=== PATIENT | male | born 1970 | race Caucasian/White ===

== ENCOUNTER → 2018-02-04 | Day surgery (SDC) | payer OTHER ==
[~2018-02-04] MED LIST: BACITRACIN 50,000 UNIT VIAL ONE; BUPIVACAINE HCL 0.5% INJ 30 ML VIAL INJ ONE; CEFAZOLIN SOD 1 GM VIAL ONE; DEXAMETHASONE SOD PHOS INJ 4 MG/ML VIAL ONE; FENTANYL CITRATE/PF 100MCG/2 ML INJ ONE; LIDOCAINE HCL 1% 30ML-PF VIAL ONE; LIDOCAINE HCL 2% LOCAL INJ 5 ML SDV VIAL INJ ONE; MIDAZOLAM HCL 2 MG/2 ML VIAL ONE; ONDANSETRON HCL INJ 2 MG/ML VIAL ONE; PROPOFOL IV EMULSION 10 MG/ML 20 ML VIAL ONE; SEVOFLURANE INHAL SOLN 250 ML PEN BTL ONE
--- NOTE | 2018-02-04 11:16 | Operative Report ---
DATE OF PROCEDURE: February 04, 2018 PREOPERATIVE DIAGNOSES: 1. Bilateral spermatoceles. 2. Desired sterilization. POSTOPERATIVE DIAGNOSES: 1. Bilateral spermatoceles. 2. Desired sterilization. PROCEDURES: 1. Bilateral vasectomy. 2. Left-sided spermatocele excision. 3. Right-sided spermatocele excision (both spermatocele excisions separate procedures, not required for vasectomy). ANESTHESIA: General. ESTIMATED BLOOD LOSS: Minimal. COMPLICATIONS: None. INDICATIONS: Mr. Zhang is a very pleasant 47-year-old male who desires sterilization, found on ultrasound to have bilateral large greater than 1 cm spermatoceles. He and I had a long discussion regarding the alternatives, the risks, and benefits including doing nothing, vasectomy, spermatocele excision. He voiced understanding of the options, alternatives, the risks and benefits including chronic pain, bleeding, infection, re-operation, damage to adjacent structures, atrophy, loss of testicle, viscus surgery, and even . He elects to proceed. PROCEDURE IN DETAIL: After informed consent was obtained, the patient was taken to the operative suite. He was placed supine on operative table. He underwent general anesthesia by the anesthesia services. The patient was placed in supine position and sterilely prepped and draped in standard fashion for scrotal surgery. A midline incision was made. The left testicle was delivered. The spermatocele was readily evident. This was excised utilizing a combination of sharp and electrocautery dissection. At the cessation of this, noted there were extreme scrotal varicosities. The vas was identified and from the varicosities as best as possible. Utilizing an Allis clamp, this was delivered from remainder of the cord. Utilizing combination of blunt, sharp, and electrocautery dissection, a segment of the vas was sharply excised and hemostatically clipped twice proximally and twice distally, and both ends were burnt. This was passed off the table as left vas segment. This entire process was repeated on the right side. The right testicle was delivered. The right spermatocele was removed intact. The right vas was identified, doubly clamped both proximally and distally and a segment was passed off table as a specimen as well. At the cessation of this, meticulous hemostasis was obtained. Both testicles were placed back in normal anatomic location and position. The wound was again irrigated. Hemostasis verified. The cremaster was closed with running Vicryl suture, the skin was then closed with running chromic gut suture. The wound was dressed. The patient was awakened from anesthesia and transported to the recovery room in excellent condition with no untoward effects noted. All sponge and instrument counts were correct x2. Job#: [id number]
== END | disposition home or self-care (01) ==
LOC: OR 06:10
PROVIDERS: ATTEND Urology
DX: N43.3 Hydrocele, unspecified (principal); Z30.2 Encounter for sterilization; I86.1 Scrotal varices; R00.1 Bradycardia, unspecified; Z01.810 Encounter for preprocedural cardiovascular examination
CPT/HCPCS: 54840; 55250; 88302; 88304; 93005; J0690; J1100; J2001; J2250; J2405